=== PATIENT | female | born 2000 | race Two or more races ===

== ENCOUNTER 2024-10-14 06:17 | Inpatient (IN) | payer MEDICAID, SELFPAY ==
[2024-10-14] VITALS (21 sets, daily range): BP systolic 96–117; BP diastolic 50–72; PULSE 63–114; RESP 16–18; TEMP 36.3–37.2; O2SAT 93–99
[2024-10-14 07:15] LABS: Basophils % (Auto) 0 % (0-2.5); Eosinophils % (Auto) 0 % (0-10); Hematocrit 37.4 % (36.0-46.0); Hemoglobin 12.6 g/dL (12.0-16.0); Immature Granulocytes % (Auto) 1 % (0-0); Immature Granulocytes Auto 0.05 Thou/mm3 (0.00-0.00); Lymphocytes # (Auto) 1.3 Thou/mm3 (1.0-4.8); Lymphocytes % (Auto) 14 % (10-50); Mean Corpuscular HGB Conc 33.7 g/dl (31.0-37.0); Mean Corpuscular Hemoglobin 26.8 pg (25.0-35.0); Mean Corpuscular Volume 80 fL (80-100); Monocytes # (Auto) 0.6 Thou/mm3 (0.0-0.8); Monocytes % (Auto) 7 % (0-12); Neutrophils # (Auto) 7.1 Thou/mm3 (1.8-7.7); Neutrophils % (Auto) 78 % (37-80); Nucleated Red Blood Cell % 0 /100 WBC (0); Platelet Count 226 Thou/mm3 (140-440); RDW Standard Deviation 44.5 fL (36.4-46.3); White Blood Count 9.1 Thou/mm3 (3.6-11.0)
[2024-10-14] MEDS: OXYTOCIN in NS 20 units 20 UNIT/1,000 ML BAG 125 UNIT IV (07:27)
[2024-10-14] MEDS: MISOPROSTOL 200 mCg TABLET 800 MCG PR (07:28)
[2024-10-14] MEDS: OXYTOCIN INJ 10 UNIT/ML VIAL IM (07:28)
[2024-10-14] MEDS: BENZO/LANO/ALOE (Dermoplast) 60 GM CAN 1 SPRAY TOP (07:45)
[2024-10-14 07:50] LABS: Syphilis Nonreactive (Nonreactive)
[2024-10-14] MEDS: IBUPROFEN TAB 400 MG TABLET 800 MG PO ×2 (08:05→21:31)
--- NOTE | 2024-10-14 08:05 | ESHP_ITS ---
Documentation for date of: 10/14/24 OB Labor/Induct. HPI History of Present Illness Chief complaint: labor : 4 Para: 3 Term pregnancies: 3 pregnancies: 0 Living children: 3 History of Abortions: Spontaneous and Elective: 0 History of Vaginal deliveries: 3 History of sections: No History of : No Date of last menstrual period: 01/21/24 OSWALD: 10/27/24 Gestational Age (weeks): 38 Gestational Age (days): 1 Gestational age based on last menstrual period: 38 History of present illness: This is a 24-year-old 4 para 3 admit to labor and delivery with complaints of contractions since 2 in the morning. Patient is been followed at [facility]. First visit was at 8 weeks. Last period January 21, 2024. This gives due date October 27, 2024. Patient had several ultrasounds and anatomy scan that also confirm dates. Denies social habits. Denies surgery. Denies chronic illness. Patient is A+, antibody screen negative, RPR nonreactive, rubella immune, hepatitis B-, hep C negative, HIV negative, GC and Chlamydia were negative. She had a abnormal 1 hour but her 3- hour GTT was normal. And GBS negative. Her NIPT and AFP were negative and carrier screens were negative History of Present Dating criteria: LMP confirmed by 1st trimester US Adequate Care: Yes Ultrasounds: normal 1st trimester US and normal mid trimester US Obstetrical complications: none Medical complications: none Labs Labs: Negative: Hepatitis B, HIV, Chlamydia, Gonorrhea and Group Beta Strep Review of Systems Review of Systems Systems Reviewed: All systems reviewed, normal except as documented Past Medical History Surgical History SURGICAL: Negative Section Meds Home Medications and Allergies Home Medications ?Medication ?Instructions ?Recorded ?Confirmed ?Type vit no.133-ferrous 1 tab PO QDAY 07/09/24 07/09/24 History fumarate 28 mg-folic acid 800 mcg tablet () Allergies Allergy/AdvReac Type Severity Reaction Status Date / Time No Known Allergies Allergy Verified 07/31/22 23:05 OB Exam Physical Exam Vital signs: Pulse BP Pulse Ox 74 107/61 93 L 10/14/24 07:35 10/14/24 07:35 10/14/24 07:26 Narrative: Alert and oriented. Normal heart rate and rhythm. Lungs were clear no wheezes. Gravid abdomen. Gynecoid pelvis. Estimated weight 7 pounds. Vaginal exam on admission was 80%, 4 to 5 cm. Contractions every 3 minutes. heart rate category 1 with accelerations and moderate variability. And bag water was intact. Vertex presentation Detailed Labor and Delivery Exam Dilation (cm): 4-5 Effacement (%): 80 Cervix position: mid station: -2 Consistency: soft Presentation: Vertex Cervical ripeness score: 8 Membranes: intact Baseline heart rate: 125 monitor accelerations: 15x15 monitor decelerations: None jail variability: Moderate (11-25) Contraction frequency (min): 3-4 Contraction duration (sec): 30 Tachysystole: No Contraction intensity: Moderate OB Results Labs 10/14/24 06:59 Labs: Short CBC 10/14/24 Range/Units 06:59 WBC 9.1 (3.6-11.0) Thou/mm3 Hgb 12.6 (12.0-16.0) g/dL Hct 37.4 (36.0-46.0) % Plt Count 226 (140-440) Thou/mm3 Impressions Impression: labor OB Assessment & Plan Assessment and Plan (1) Normal labor and delivery: Status: Acute Additional Plan Induction method: none Plan: anticipate NVD and consult MD louis
[2024-10-14] MEDS: TRANEXAMIC ACID 1,000 MG IVPB 1,000 MG/100 ML BAG 200 MG IV (08:10)
--- NOTE | 2024-10-14 08:10 | PD.LDDELS ---
Data ([facility]) Data Hx Section: No : 4 Para: 3 Term: 3 : 0 : 0 Delivery Data ([facility]) Labor Data Stimulated/Augmented: No Induction: No ROM Date: 10/14/24 ROM Time: 07:20 Rupture Type: AROM Amniotic Fluid: Thick Meconium Delivery Data EDC: 10/27/24 EDC calculated by:: LMP/early US confirmation Labor Onset Stage 1 Date: 10/14/24 Labor Onset Stage 1 Time: 02:00 Labor Onset Stage 2 Date: 10/14/24 Labor Onset Stage 2 Time: 07:21 Delivery Date: 10/14/24 Delivery Time: 07: Gestational age (weeks): 38 Gestational age (days): 1 Placenta Delivery Date: 10/14/24 Placenta Delivery Time: : Delivered by: Maria Eugenia Mabry Delivery nurse: Latoya Gross Other staff at delivery: Nursery Nurse Other staff at delivery: Nurse Other staff at delivery: Lissette Mcclellan Other staff at delivery: Kati Miguel Delivery Method Delivery: Vaginal Delivery Type: Spontaneous Presentation: Vertex Position: OA Anesthesia Type Primary Anesthesia: None Delivery Room Medications Post Delivery Medications: Tocolytics and Cytotec Placenta Placenta Delivery: Spontaneous (inspected, intact) Placenta Cultures Obtained: No Placenta Sent for Examination: No Episiotomy Episiotomy: None (intact) EBL Estimated blood loss (ml): 350 Umbilical Cord Umbilical Vessels: 3 Nuchal Cord: x1 [place] Data ([place]) [place] Data Infant Gender: Male Infant Weight Grams: 3200 1 Minute Total: 9 5 Minute Total: 9
[2024-10-14] MEDS: DOCUSATE SOD 100 MG CAPSULE PO ×2 (11:34→21:31)
[2024-10-14] MEDS: ACETAMINOPHEN 325 MG TABLET 650 MG PO (11:34)
[2024-10-14 16:20] LABS: Basophils % (Auto) 0 % (0-2.5); Eosinophils # (Auto) 0.1 Thou/mm3 (0.0-0.5); Eosinophils % (Auto) 1 % (0-10); Hematocrit 33.3 % (36.0-46.0); Hemoglobin 11.2 g/dL (12.0-16.0); Immature Granulocytes % (Auto) 0 % (0-0); Immature Granulocytes Auto 0.03 Thou/mm3 (0.00-0.00); Lymphocytes # (Auto) 1.4 Thou/mm3 (1.0-4.8); Lymphocytes % (Auto) 13 % (10-50); Mean Corpuscular HGB Conc 33.6 g/dl (31.0-37.0); Mean Corpuscular Hemoglobin 27.3 pg (25.0-35.0); Mean Corpuscular Volume 81 fL (80-100); Monocytes # (Auto) 0.7 Thou/mm3 (0.0-0.8); Monocytes % (Auto) 7 % (0-12); Neutrophils # (Auto) 8.6 Thou/mm3 (1.8-7.7); Neutrophils % (Auto) 79 % (37-80); Nucleated Red Blood Cell % 0 /100 WBC (0); Platelet Count 205 Thou/mm3 (140-440); RDW Standard Deviation 45.5 fL (36.4-46.3); White Blood Count 10.8 Thou/mm3 (3.6-11.0)
[2024-10-15 04:55] VITALS: BP 97/61; PULSE 72; RESP 16; TEMP 36.8; O2SAT 98
[2024-10-15 07:40] VITALS: BP 100/66; PULSE 83; RESP 16; TEMP 36.7; O2SAT 97
[2024-10-15] MEDS: DOCUSATE SOD 100 MG CAPSULE PO (08:49)
[2024-10-15] MEDS: IBUPROFEN TAB 400 MG TABLET 800 MG PO (08:49)
--- NOTE | 2024-10-15 10:56 | PD.LDPPPRG ---
Subjective Subjective Interval history: No complaints of pain. No dizziness. Bonding and breast-feeding Exam Vital Signs Temp Pulse Resp BP Pulse Ox O2 Del Method 98.0 F 83 16 100/66 97 Room Air 10/15/24 07:40 10/15/24 07:40 10/15/24 07:40 10/15/24 07:40 10/15/24 07:40 10/15/24 07:40 Narrative Exam Vital signs are stable afebrile. Breasts are soft. Fundus firm below the umbilicus. Perineum intact no swelling. Small lochia uterine. Uterus well involuted. Negative Homans' sign. Both legs are not swollen no redness and normal DTR Objective Labs 10/14/24 16:00 Labs: Laboratory Results - last 24 hr 10/14/24 10/14/24 06:59 16:00 WBC 10.8 RBC 4.10 Hgb 11.2 L Hct 33.3 L MCV 81 MCH 27.3 MCHC 33.6 RDW Std Deviation 45.5 Plt Count 205 Neut % (Auto) 79 Lymph % (Auto) 13 Cross % (Auto) 7 Eos % (Auto) 1 Baso % (Auto) 0 Neut # (Auto) 8.6 H Lymph # (Auto) 1.4 Cross # (Auto) 0.7 Eos # (Auto) 0.1 Baso # (Auto) 0.0 Immature Gran # (Auto) 0.03 H Absolute Nucleated RBC 0.00 Immature Gran % 0 Nucleated RBC % 0 Blood Type A Positive Antibody Screen NEGATIVE Blood Bank Wristband ID Yes Assessment & Plan Problem List (1) Normal labor and delivery: Status: Acute Assessment Comment Assessment comment: 24 hr pp Plan Comment Plan Comment: Discharge home with baby. Continue vitamins and iron. Tylenol or ibuprofen for pain. I discussed danger signs and symptoms with the patient. Discussed ER precautions and parameters. And discussed signs and symptoms of infection. Increase fluids and rest. And return in 3 weeks Time Spent With Patient Time: Total time spent is greater than 50% in coordination of care (as documented) at patient's floor/unit and/or counseling patient:
--- NOTE | 2024-10-15 10:57 | ESDS_ITS ---
DS: Providers Provider Date of admission: 10/14/24 06:39 Primary care physician: Physician No Primary/Family Admitting Provider: Krzysztof Lozano MD Attending Provider on Admission: Maria Eugenia Mabry CNM Consults: 10/14/24 08:20 Referral Routine Comment: Attending Provider on DC: Maria Eugenia Mabry CNM Discharging Provider: Maria Eugenia Mabry CNM DS: Diagnosis Problem List Completed Was Problem List Reviewed/Reconciled?: Yes Summary/Hosp Course Brief History: This is a 24-year-old 4 para 3 admit to labor and delivery with complaints of contractions since 2 in the morning. Patient is been followed at [facility]. First visit was at 8 weeks. Last period January 21, 2024. This gives due date October 27, 2024. Patient had several ultrasounds and anatomy scan that also confirm dates. Denies social habits. Denies surgery. Denies chronic illness. Patient is A+, antibody screen negative, RPR nonreactive, rubella immune, hepatitis B-, hep C negative, HIV negative, GC and Chlamydia were negative. She had a abnormal 1 hour but her 3- hour GTT was normal. And GBS negative. Her NIPT and AFP were negative and carrier screens were negative Peripartum Data Delivery Method: Normal Vaginal Delivery Episiotomy Description: None Laceration Description: no Time Spent with Patient Time attestation: Total time spent providing and/or coordinating discharge services: Exam Vital Signs Temp Pulse Resp BP Pulse Ox O2 Del Method 98.0 F 83 16 100/66 97 Room Air 10/15/24 07:40 10/15/24 07:40 10/15/24 07:40 10/15/24 07:40 10/15/24 07:40 10/15/24 07:40 Discharge Plan Plan Patient Disposition: HOME (Self Care) Prescriptions/Referrals Prescriptions/Med Rec: No Action 28-800 mg-mcg Tablet 1 tab PO QDAY Referrals: No Primary/Family,Physician [Primary Care Provider] - Patient/Caregiver Discharge Instructions Print Language: Greenlandic Activity Restrictions/Additional Instructions: Discharge home with baby. Continue vitamins and iron. Ibuprofen or Tylenol for pain. Discussed ER precautions and parameters. Discussed signs symptoms of infection. And I discussed danger signs and symptoms with the patient. Increase fluids and rest. Return in 3 weeks Stand Alone Forms: Kristine You Info., Patient Portal Info Letter Discharge Order Discharge Orders: Discharge (Routine); Ordered 10/15/24 Ordered By: Maria Eugenia Mabry Planned Discharge Date 10/15/24
[2024-10-15] MEDS: INFLUENZA VIRUS QUADRIVALENT 0.5 ML SYRINGE IMi (11:16)
[2024-10-15] MEDS: DIPHTH,PERTUSS(ACELL),TET VAC 0.5 ML VIAL IMi (11:17)
--- NOTE | 2024-10-15 11:19 | PC.NURSE ---
Flu and Tdap given to patient in left arm per pt. preference. Verified with pharmacist Abigail OK to give both vaccines in same limb, Abigail states yes this is okay, as long as you give them at least an inch apart. vaccines given in left deltoid one inch apart.
[2024-10-15 11:30] VITALS: BP 106/69; PULSE 78; RESP 16; TEMP 36.6; O2SAT 97
== END 2024-10-15 13:18 | disposition home or self-care (01) | DRG 560 ==
LOC: S4SX 12:15 → S4NX 12:39
PROVIDERS: Admitting Provider Specialist; Visit Provider Advanced Practice Midwife
DX: O69.81X0 Labor and delivery complicated by cord around neck, without compression, not applicable or unspecified (principal); O77.0 Labor and delivery complicated by meconium in amniotic fluid; Z37.0 Single live birth; Z3A.38 38 weeks gestation of pregnancy; Z23 Encounter for immunization
CPT/HCPCS: 36415; 59409; 85025; 86780; 86850; 86900; 86901; 90686; 90715; J2590; J3490; S0191; A9270; J9060